=== PATIENT | female | born 1990 | race Caucasian/White ===

== ENCOUNTER → 2017-12-30 | Outpatient (CLI) | payer BC | END | disposition home or self-care (01) | LOC: LABWHC1 15:30 | PROVIDERS: ATTEND Otolaryngology | DX: J30.89 Other allergic rhinitis (principal) | CPT/HCPCS: 36415 ==

== ENCOUNTER → 2023-07-25 | Outpatient (CLI) | payer SELFPAY ==
--- NOTE | 2023-07-25 10:28 | CA ---
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 67 - 155 / 56 - 104 cm??? LV Systolic Volume MOD BP 14.3 cm??? 22 - 58 / 19 - 49 cm??? LV Ejection Fraction MOD BP 59.1 % >= 55 % LV Cardiac Index MOD BP 1293.7 cm???/min???m??? LV Diastolic Volume MOD 4C 37.8 cm??? LV Systolic Volume MOD 4C 13.4 cm??? LV Ejection Fraction MOD 4C 64.6 % LV Cardiac Index MOD 4C 1534.2 cm???/min???m??? LV Diastolic Length 4C 6.1 cm LV Systolic Length 4C 4.2 cm LV Diastolic Volume MOD 2C 34.5 cm??? LV Systolic Volume MOD 2C 14.6 cm??? LV Ejection Fraction MOD 2C 57.5 % LV Cardiac Index MOD 2C 1245.4 cm???/min???m??? LV Diastolic Length 2C 6.2 cm LV Systolic Length 2C 4.5 cm DOPPLER AV Peak Velocity 79.4 cm/s AV Peak Gradient 2.5 mmHg AV Mean Velocity 93.0 cm/s AV Mean Gradient 3.7 mmHg AV Velocity Time Integral 21.0 cm LVOT Peak Velocity 99.2 cm/s LVOT Peak Gradient 3.9 mmHg LVOT Velocity Time Integral 15.6 cm LVOT Stroke Volume 43.7 cm??? LVOT Stroke Volume Index 28.6 ml/m??? LVOT Cardiac Index 2741.6 cm???/min???m??? AV Area Cont Eq vti 2.1 cm??? AV Area Cont Eq pk 3.5 cm??? MR Peak Velocity 224.2 cm/s MR Peak Gradient 20.1 mmHg Mitral E Point Velocity 81.6 cm/s Mitral A Point Velocity 76.3 cm/s Mitral E to A Ratio 1.1 MV Deceleration Time 232.3 ms TR Peak Velocity 238.4 cm/s TR Peak Gradient 22.7 mmHg PV Peak Velocity 136.4 cm/s PV Peak Gradient 7.4 mmHg FINDINGS Left Ventricle Left ventricular ejection fraction is estimated at 55-60 %. Normal left ventricular systolic function with no obvious regional wall motion abnormalities. Right Ventricle Normal right ventricular size and function. Right ventricular systolic pressure within normal limits. Right Atrium Normal right atrial size. Left Atrium Normal left atrial size. Mitral Valve Mild mitral regurgitation. Aortic Valve Aortic valve not well visualized. Tricuspid Valve Mild tricuspid regurgitation. Pulmonic Valve Mild pulmonic regurgitation. Pericardium No pericardial effusion. Aorta Normal size aortic root. CONCLUSIONS Normal LV systolic Previewed by: Dr. Ady Tellez MD (Electronically Signed) Final Date: 25 July 2023 10:28
== END | disposition home or self-care (01) ==
LOC: MERGE 08:30 → RADECHMAIN 08:34
PROVIDERS: ATTEND Family Medicine
DX: I37.1 Nonrheumatic pulmonary valve insufficiency (principal)
CPT/HCPCS: 93306

== ENCOUNTER → 2023-08-29 | Outpatient (CLI) | payer SELFPAY ==
--- NOTE | 2023-08-29 16:32 | US ---
EXAMINATION TYPE: US kidneys/renal and bladder DATE OF EXAM: 08/29/2023 COMPARISON: NONE CLINICAL INDICATION: Female, 32 years old with history of N20.0 CALCULUS OF KIDNEY; Hx Lt kid stones EXAM MEASUREMENTS: Right Kidney: 10.7x3.4x5.0 cm Left Kidney: 9.2x5.1x5.9 cm Right Kidney: No hydronephrosis or masses seen Left Kidney: 3 very small echogenic areas measuring up to 0.4cm within the left kidney without shadow or twinkle artifact may represent stones Bladder: wnl Bilateral Jets seen: Yes There is no evidence for hydronephrosis at this point in time. The urinary bladder is anechoic. Bhupinder ateral ureteral jets are seen. IMPRESSION: Findings within the left kidney may reflect angiomyolipomas and/or nonshadowing renal calculi.
== END | disposition home or self-care (01) ==
LOC: RADUSWWP 15:09
PROVIDERS: ATTEND Urology
DX: N20.0 Calculus of kidney (principal)
CPT/HCPCS: 76770